=== PATIENT | female | born 1975 | race Caucasian/White ===

== ENCOUNTER 2016-03-18 12:53 | Outpatient (CLI) | payer OTHER ==
--- NOTE | 2016-03-19 10:57 | DIAGNOSTIC IMAGING REPORT ---
REFERRING PHYSICIAN/PROVIDER: Celsa Akhtar MD CONSULTING BROOM BUNDLER: Wayne Goodwin MD PROCEDURE: M-mode 2D echocardiography with spectral and color flow Doppler TECHNICAL QUALITY: The study quality was technically adequate. INDICATION: VENTRICULAR PREMATURE BEATS RHYTHM DURING PROCEDURE: The patient was in normal sinus rhythm during the exam. INTERPRETATIONS: LEFT VENTRICLE: The left ventricle is normal in size, wall thickness, and systolic function without any focal wall motion abnormalities. There is no ventricular septal defect visualized. The ejection fraction is estimated to be 55 6%. Assessment of diastolic parameters indicates normal left ventricular diastolic function and normal filling pressures. RIGHT VENTRICLE: The right ventricle is normal in size and function. ATRIA: Both atria are normal in size. The interatrial septum is intact with no evidence for an atrial septal defect. MITRAL VALVE: The mitral valve is normal in structure and function. There is trace mitral regurgitation. AORTIC VALVE: The aortic valve is trileaflet. Aortic valve opens well. There is no aortic regurgitation. TRICUSPID VALVE: The tricuspid valve is normal in structure and function. There is trace tricuspid regurgitation. Pulmonary artery pressures could not be estimated because of the lack of a measurable TR jet velocity. PULMONIC VALVE: The pulmonic valve is not well visualized. There is no pulmonic valvular regurgitation. GREAT VESSELS: The aorta root is normal size. The os aorta cannot be visualized. The IVC is of normal diameter and collapses greater than 50% with the sniff. This suggests a low right atrial pressure of 3 mmHg. PERICARDIUM: There is no pericardial air IMPRESSION: 1. LV ejection fraction is normal. 2. RV systolic function is normal. 3. No significant valvular heart disease. 4. Both atria are normal in size. 5. Aorta root is normal size.
== END 2016-03-18 23:00 ==
LOC: US SRH 12:53
DX: I49.3 Ventricular premature depolarization (principal)